=== PATIENT | female | born 1990 | race Caucasian/White ===

== ENCOUNTER 2016-10-31 13:38 | Emergency (ER) | payer OTHER ==
[~2016-10-31] VITALS: Ht 162.6 cm; Wt 111.6 kg
--- NOTE | 2016-10-31 13:40 | NUR ---
PT AMBULATORY TO ER BED 09. C/O DIFFUSE ABDOMINAL PAIN FOR 2 MONTHS NOW. GOWNED AND PLACED ON MONITOR. STABLE VITALS AWAITING MD ZIMMER.
--- NOTE | 2016-10-31 14:25 | NUR ---
DR CRISOSTOMO AT BEDSIDE FOR EVAL.
[2016-10-31 14:39] LABS: BASOPHILS % (AUTO) 0.4 % (0.0-2.0); EOSINOPHILS # (AUTO) 0.8 /CMM (0.0-0.7); EOSINOPHILS % (AUTO) 7.1 % (0.0-6.0); HEMATOCRIT 36 % (33-45); HEMOGLOBIN 10.6 g/dL (11.5-14.8); LYMPHOCYTES # (AUTO) 2.9 /CMM (0.8-4.8); LYMPHOCYTES % (AUTO) 25.6 % (20.0-44.0); MEAN CORPUSCULAR HEMOGLOBIN 19 PG (26.0-33.0); MEAN CORPUSCULAR HGB CONC 30 g/dl (31.0-36.0); MEAN CORPUSCULAR VOLUME 63 fL (82-100); MONOCYTES # (AUTO) 0.9 /CMM (0.1-1.30); MONOCYTES % (AUTO) 8.2 % (2.0-12.0); NEUTROPHILS # (AUTO) 6.6 /CMM (1.8-8.9); NEUTROPHILS % (AUTO) 58.7 % (43.0-81.0); PLATELET COUNT (AUTO) 344 /CMM (150-450); RDW COEFFICIENT OF VARIATION 19.3 (11.5-15.0); RED BLOOD CELL COUNT(AUTO) 5.69 MIL/uL (4.0-5.2); WHITE BLOOD COUNT (AUTO) 11.2 K/uL (4.3-11.0)
[2016-10-31 14:46] LABS: CALCIUM, SERUM 8.8 mg/dL (8.5-10.1); CREATININE 0.7 mg/dL (0.6-1.3); POTASSIUM 3.7 mmol/L (3.5-5.1)
[2016-10-31 14:51] LABS: ALBUMIN 3.8 g/dL (3.4-5.0); BILIRUBIN,DIRECT 0.1 mg/dL (0.0-0.2); BILIRUBIN,TOTAL 0.2 mg/dL (0.2-1.0); TOTAL PROTEIN, SERUM 8.5 g/dL (6.4-8.2)
--- NOTE | 2016-10-31 15:15 | NUR ---
U/S TECH AT BEDSIDE FOR PELVIC ULTRASOUND.
[2016-10-31 15:19] LABS: APPEARANCE,URINE Turbid (CLEAR); BILIRUBIN,URINE Negative (NEGATIVE); BLOOD, URINE Large Ery/uL (NEGATIVE); COLOR,URINE Dark (YELLOW); KETONES,URINE Negative (NEGATIVE); LEUKOCYTE ESTERASE ,URINE Trace (NEGATIVE); NITRITE, URINE Negative (NEGATIVE); PROTEIN,URINE 30 mg/dl (NEGATIVE); UGLUCOSE Negative (NEGATIVE); UROBILINOGEN,URINE 0.2 EU/dL (0.2)
[2016-10-31 15:31] LABS: RBC,URINE 80-100 /HPF (0-2)
[2016-10-31 15:32] LABS: BACTERIA,URINE Few /HPF (None Seen); SQUAMOUS EPITHELIAL CELL,UR Few /HPF (None Seen)
--- NOTE | 2016-10-31 16:07 | NUR ---
Patient discharged to home in stable condition. Written and verbal after care instructions given. Patient verbalizes understanding of instruction.
[2016-10-31 16:08] VITALS: BP 130/84
== END 2016-10-31 16:10 | disposition home or self-care (01) ==
LOC: ER 13:40
DX: N39.0 Urinary tract infection, site not specified (principal); J45.909 Unspecified asthma, uncomplicated; N83.209 Unspecified ovarian cyst, unspecified side
CPT/HCPCS: 36415; 76856-TC; 80048-TC; 80076-TC; 81000-TC; 83690-TC; 84703-TC; 85025-TC; 87086-TC; A4606; Z7610

== ENCOUNTER 2018-01-28 17:45 | Emergency (ER) | payer OTHER ==
[~2018-01-28] VITALS: Ht 165.1 cm; Wt 117.9 kg
[2018-01-28] MEDS ORDERED: methylPREDNISolone SOD SUCC 125 MG/2ML VIAL ONE (18:28)
[2018-01-28] MEDS ORDERED: methylPREDNISolone SOD SUCC 125 MG/2ML VIAL IV ONE (18:30)
[2018-01-28] MEDS ORDERED: ALBUTEROL FS 2.5 MG/3 ML VIAL.NEB NEB ONE (18:30)
[2018-01-28] MEDS ORDERED: IV NS 0.9% 1,000 ML BAG IV ONE (18:30)
[2018-01-28] MEDS ORDERED: IPRATROPIUM NEB FS 0.5 MG/2.5 ML AMPUL.NEB NEB ONE (18:30)
[2018-01-28] MEDS ORDERED: IPRATROPIUM NEB FS 0.5 MG/2.5 ML AMPUL.NEB ONE (18:45)
[2018-01-28] MEDS ORDERED: ALBUTEROL FS 2.5 MG/3 ML VIAL.NEB ONE (18:45)
[2018-01-28] MEDS ORDERED: methylPREDNISolone SOD SUCC 125 MG/2ML VIAL IM ONE (19:00)
--- NOTE | 2018-01-28 19:00 | NUR ---
RECEIVED REPORT FROM CHI SANCHEZ FOR CONTINUITY OF CARE.
[2018-01-28 20:24] VITALS: BP 125/64
--- NOTE | 2018-01-28 20:26 | NUR ---
Patient discharged to home in stable condition. Written and verbal after care instructions given. Patient verbalizes understanding of instruction. pt. ambulatory with a steady gait
== END 2018-01-28 20:26 | disposition home or self-care (01) ==
LOC: ER 17:53
DX: J45.901 Unspecified asthma with (acute) exacerbation (principal); Z98.890 Other specified postprocedural states
CPT/HCPCS: 94644; 96372; 99285; A4606; J2930; J7030; Z7610

== ENCOUNTER 2018-04-07 17:10 | Emergency (ER) | payer MEDICAID, OTHER ==
[~2018-04-07] VITALS: Ht 165.1 cm; Wt 122.5 kg
--- NOTE | 2018-04-07 17:30 | NUR ---
patient presented to the emergency room c/o worsening sob x 3 days. on room air, breathing evenly and unlabored. ambulatory with steady gait. connected to the monitor and pulse ox. denies any pain at this time, kept comfortable. will continue to monitor accordingly.
[2018-04-07] MEDS ORDERED: IPRATROPIUM NEB FS 0.5 MG/2.5 ML AMPUL.NEB ONE (18:15)
[2018-04-07] MEDS ORDERED: ALBUTEROL FS 2.5 MG/3 ML VIAL.NEB ONE (18:15)
[2018-04-07] MEDS ORDERED: ALBUTEROL FS 2.5 MG/3 ML VIAL.NEB NEB ONE (18:30)
[2018-04-07] MEDS ORDERED: IPRATROPIUM NEB FS 0.5 MG/2.5 ML AMPUL.NEB NEB ONE (18:30)
[2018-04-07] MEDS ORDERED: predniSONE 20 MG TABLET ONE (18:30)
[2018-04-07] MEDS ORDERED: predniSONE 20 MG TABLET PO ONE (18:30)
[2018-04-07 19:24] VITALS: BP 145/98
--- NOTE | 2018-04-07 19:24 | NUR ---
Patient discharged to home in stable condition. Written and verbal after care instructions given. Patient verbalizes understanding of instruction.
== END 2018-04-07 19:24 | disposition home or self-care (01) ==
LOC: ER 17:13
DX: J45.909 Unspecified asthma, uncomplicated (principal); R00.0 Tachycardia, unspecified; Z98.890 Other specified postprocedural states
CPT/HCPCS: 93005; 94644; 99285; A4606; J7512

== ENCOUNTER 2018-04-16 15:12 | Emergency (ER) | payer MEDICAID, OTHER ==
[~2018-04-16] VITALS: Ht 165.1 cm; Wt 121.1 kg
[2018-04-16] MEDS ORDERED: IPRATROPIUM NEB FS 0.5 MG/2.5 ML AMPUL.NEB NEB ONE (15:30)
[2018-04-16] MEDS ORDERED: ALBUTEROL FS 2.5 MG/3 ML VIAL.NEB NEB ONE (15:30)
[2018-04-16] MEDS ORDERED: predniSONE 20 MG TABLET PO ONE (15:30)
--- NOTE | 2018-04-16 15:30 | NUR ---
patient presented to the ER c/o asthma attack and sob. On room air. breathing evenly and unlabored. kept comfortable, will continue to monitor accordingly.
[2018-04-16] MEDS ORDERED: predniSONE 20 MG TABLET ONE (15:37)
[2018-04-16] MEDS ORDERED: IPRATROPIUM NEB FS 0.5 MG/2.5 ML AMPUL.NEB ONE (16:04)
[2018-04-16] MEDS ORDERED: ALBUTEROL FS 2.5 MG/3 ML VIAL.NEB ONE (16:04)
[2018-04-16] MEDS ORDERED: ALBUTEROL FS 2.5 MG/0.5 ML VIAL.NEB ONE (16:44)
[2018-04-16] MEDS ORDERED: ALBUTEROL FS 2.5 MG/0.5 ML VIAL.NEB NEB ONE (17:00)
--- NOTE | 2018-04-16 17:35 | NUR ---
Patient discharged to home in stable condition. Written and verbal after care instructions given. Patient verbalizes understanding of instruction.
[2018-04-16 17:36] VITALS: BP 145/99
== END 2018-04-16 17:37 | disposition home or self-care (01) ==
LOC: ER 15:21
DX: J45.901 Unspecified asthma with (acute) exacerbation (principal); Z98.890 Other specified postprocedural states
CPT/HCPCS: 94640 ×2; 99284; A4606; J7512

== ENCOUNTER 2021-03-15 10:25 | Emergency (ER) | payer OTHER ==
[~2021-03-15] VITALS: Ht 165.1 cm; Wt 113.4 kg
[2021-03-15 10:25] VITALS: BP 135/111
[2021-03-15] MEDS ORDERED: ALBU8.5H8 INH (10:36)
== END 2021-03-15 10:51 | disposition home or self-care (01) ==
LOC: ER 10:38
DX: J45.909 Unspecified asthma, uncomplicated (principal); Z98.890 Other specified postprocedural states; Z79.899 Other long term (current) drug therapy

== ENCOUNTER → 2021-04-02 | Emergency (ER) | payer BC, MEDICAID ==
[~2021-04-02] VITALS: Ht 162.6 cm; Wt 117.9 kg
[~2021-04-02] MED LIST: ALBU8.5H8 INH; DEXAMETHASONE SOD PHOSPHATE 10 MG/ML VIAL ONE; DEXAMETHASONE SOD PHOSPHATE 4 MG/ML VIAL IM ONE
--- NOTE | 2021-04-02 00:29 | NUR ---
PT BIB SELF A/O X 3 C/O DIFFICULTY SWALLOWING STARTED TODAY. DENIES SOB OR ANY OTHER SYMPTOMS.
--- NOTE | 2021-04-02 01:00 | NUR ---
PT STATES FEELS SOME IMPROVEMENT MD AWARE.
--- NOTE | 2021-04-02 01:08 | NUR ---
DISCAHRGE PAPERWORK GIVEN PT LEFT IN STABLE CONDITION.
[2021-04-02 01:09] VITALS: BP 164/96
== END | disposition home or self-care (01) ==
LOC: ER 00:15
DX: R13.10 Dysphagia, unspecified (principal); J45.909 Unspecified asthma, uncomplicated; Z98.891 History of uterine scar from previous surgery; Z79.51 Long term (current) use of inhaled steroids
CPT/HCPCS: 96372; 99283; J1100

== ENCOUNTER 2021-04-19 12:52 | Emergency (ER) | payer MEDICAID ==
[~2021-04-19] VITALS: Ht 162.6 cm; Wt 122.5 kg
[~2021-04-19 12:52] MED LIST changes: -DEXAMETHASONE SOD PHOSPHATE 10 MG/ML VIAL ONE; -DEXAMETHASONE SOD PHOSPHATE 4 MG/ML VIAL IM ONE
[2021-04-19 13:13] VITALS: BP 155/86
--- NOTE | 2021-04-19 13:15 | NUR ---
SEEN AND EXAMINED BY DR JEONG
[2021-04-19] MEDS ORDERED: DEXAMETHASONE SOD PHOSPHATE 10 MG/ML VIAL ONE (13:17)
--- NOTE | 2021-04-19 13:25 | NUR ---
Patient discharged to home in stable condition. Written and verbal after care instructions given. Patient verbalizes understanding of instruction.
[2021-04-19] MEDS ORDERED: DEXAMETHASONE SOD PHOSPHATE 4 MG/ML VIAL IM ONE (13:30)
== END 2021-04-19 13:25 | disposition home or self-care (01) ==
LOC: ER 12:54
DX: R07.0 Pain in throat (principal); J45.909 Unspecified asthma, uncomplicated; Z98.891 History of uterine scar from previous surgery; Z79.51 Long term (current) use of inhaled steroids
CPT/HCPCS: 87070; 87880; 96372; 99283; J1100; 86403-TC

== ENCOUNTER 2021-05-02 11:11 | Emergency (ER) | payer MEDICAID ==
[~2021-05-02] VITALS: Ht 165.1 cm; Wt 136.1 kg
[2021-05-02 11:20] VITALS: BP 148/111
[2021-05-02] MEDS ORDERED: IPRATROPIUM NEB FS 0.5 MG/2.5 ML AMPUL.NEB ONE ×2 (11:32→13:05)
[2021-05-02] MEDS ORDERED: ALBUTEROL FS 2.5 MG/3 ML VIAL.NEB ONE ×2 (11:32→13:05)
[2021-05-02] MEDS: IPRATROPIUM NEB FS 0.5 MG/2.5 ML AMPUL.NEB NEB ONE ×2 (11:39→13:00)
[2021-05-02] MEDS: ALBUTEROL FS 2.5 MG/3 ML VIAL.NEB NEB ONE ×2 (11:39→13:00)
[2021-05-02] MEDS ORDERED: predniSONE 20 MG TABLET ONE (12:07)
[2021-05-02] MEDS: predniSONE 20 MG TABLET PO ONE (12:10)
--- NOTE | 2021-05-02 13:39 | NUR ---
BREATHING TREATMENT STILL ONGOING AT BEDSIDE
[2021-05-02] MEDS ORDERED: PRED50TA PO (13:49)
--- NOTE | 2021-05-02 14:33 | NUR ---
Patient discharged to home in stable condition. Written and verbal after care instructions given. Patient verbalizes understanding of instruction.
== END 2021-05-02 14:35 | disposition home or self-care (01) ==
LOC: ER 11:15
DX: J45.901 Unspecified asthma with (acute) exacerbation (principal); Z79.51 Long term (current) use of inhaled steroids
CPT/HCPCS: 93005; 94644; 94645; 99285; J7512

== ENCOUNTER 2021-10-18 22:07 | Emergency (ER) | payer MEDICAID ==
[~2021-10-18] VITALS: Ht 165.1 cm; Wt 117.0 kg
[~2021-10-18 22:07] MED LIST changes: +PRED50TA PO
--- NOTE | 2021-10-18 22:10 | NUR ---
CALLED FOR TRIAGE NOT IN WAITING ROOM
--- NOTE | 2021-10-18 22:47 | NUR ---
BIBS C/O ASTHMA ATTACK X3 DAYS UNRELIEVED BY INHALER, +WHEEZING BILATERALLY. AMBULATORY, PLACED ON BED, AAOX4, UNLABORED BREATHING SATURATING AT 95%RA
[2021-10-18 22:48] VITALS: BP 151/88
[2021-10-18] MEDS ORDERED: predniSONE 20 MG TABLET ONE (22:54)
--- NOTE | 2021-10-18 22:57 | NUR ---
AT BED SIDE
[2021-10-18] MEDS ORDERED: ALBUTEROL FS 2.5 MG/3 ML VIAL.NEB NEB ONE (23:00)
[2021-10-18] MEDS ORDERED: predniSONE 20 MG TABLET PO ONE (23:00)
[2021-10-18] MEDS ORDERED: IPRATROPIUM NEB FS 0.5 MG/2.5 ML AMPUL.NEB NEB ONE (23:00)
[2021-10-18] MEDS ORDERED: IPRATROPIUM NEB FS 0.5 MG/2.5 ML AMPUL.NEB ONE (23:03)
[2021-10-18] MEDS ORDERED: ALBUTEROL FS 2.5 MG/3 ML VIAL.NEB ONE (23:03)
[2021-10-18] MEDS ORDERED: MOME13HF2 INH (23:12)
[2021-10-18] MEDS ORDERED: PRED20TA PO (23:12)
--- NOTE | 2021-10-18 23:37 | NUR ---
RT AT PT'S BEDSIDE; FINISHING BREATHING TX
--- NOTE | 2021-10-18 23:52 | NUR ---
Patient discharged to home in stable condition. Written and verbal after care instructions given. Patient verbalizes understanding of instruction. pt ambulatory with a steady gait. VSS
== END 2021-10-18 23:53 | disposition home or self-care (01) ==
LOC: ER 22:09
DX: J45.901 Unspecified asthma with (acute) exacerbation (principal); E66.01 Morbid (severe) obesity due to excess calories; Z68.41 Body mass index [BMI] 40.0-44.9, adult; Z98.890 Other specified postprocedural states; Z79.899 Other long term (current) drug therapy
CPT/HCPCS: 99284; 94640 ×2; J7512

== ENCOUNTER 2021-12-15 15:30 | Emergency (ER) | payer BC, MEDICAID ==
[~2021-12-15] VITALS: Ht 165.1 cm; Wt 113.4 kg
[~2021-12-15 15:30] MED LIST changes: +MOME13HF2 INH; +PRED20TA PO
--- NOTE | 2021-12-15 15:38 | NUR ---
BIBS STATING SHES BEEN HAVING ASTHMA ATTACKS THIS MORNING PT WANTS RX FOR INHALER
--- NOTE | 2021-12-15 15:53 | NUR ---
DR ONTIVEROS W/ PT FOR EVAL
[2021-12-15] MEDS ORDERED: predniSONE 20 MG TABLET ONE (16:00)
[2021-12-15] MEDS: predniSONE 20 MG TABLET PO ONE (16:02)
--- NOTE | 2021-12-15 16:02 | NUR ---
PREDNISONE PO GIVEN INDICATED, G[facility] WE[facility]
[2021-12-15] MEDS ORDERED: IPRATROPIUM NEB FS 0.5 MG/2.5 ML AMPUL.NEB ONE (16:09)
[2021-12-15] MEDS ORDERED: ALBUTEROL FS 2.5 MG/3 ML VIAL.NEB ONE (16:09)
[2021-12-15] MEDS: IPRATROPIUM NEB FS 0.5 MG/2.5 ML AMPUL.NEB NEB ONE (16:12)
[2021-12-15] MEDS ORDERED: PRED50TA PO (16:12)
[2021-12-15] MEDS ORDERED: ALBU18HF2 INH (16:12)
[2021-12-15] MEDS: ALBUTEROL FS 2.5 MG/3 ML VIAL.NEB NEB ONE (16:12)
--- NOTE | 2021-12-15 16:16 | NUR ---
Patient discharged to home in stable condition. Written and verbal after care instructions given. Patient verbalizes understanding of instruction.
[2021-12-15 16:17] VITALS: BP 131/84
== END 2021-12-15 16:29 | disposition home or self-care (01) ==
LOC: ER 15:35
DX: J45.901 Unspecified asthma with (acute) exacerbation (principal); J45.909 Unspecified asthma, uncomplicated; Z79.899 Other long term (current) drug therapy; Z79.51 Long term (current) use of inhaled steroids
CPT/HCPCS: 99283; 94799; 94640; J7512

== ENCOUNTER 2022-01-15 22:29 | Emergency (ER) | payer BC ==
[~2022-01-15] VITALS: Ht 165.1 cm; Wt 113.4 kg
[~2022-01-15 22:29] MED LIST changes: +ALBU18HF2 INH
--- NOTE | 2022-01-15 22:38 | NUR ---
BIBWIFE C/O ASTHMA ATTACK STARTED 2 HRS AGO. PT A/OX4. TOLERATING R/A AT 96% WITH SOB. CONNECTED PT TO POX AND MONITOR. SAFETY MEASURES IN PLACE.
[2022-01-15 22:41] VITALS: BP 159/95
[2022-01-15] MEDS ORDERED: IPRATROPIUM NEB FS 0.5 MG/2.5 ML AMPUL.NEB ONE (22:48)
[2022-01-15] MEDS ORDERED: ALBUTEROL FS 2.5 MG/0.5 ML VIAL.NEB ONE ×2 (22:48→23:18)
--- NOTE | 2022-01-15 22:51 | NUR ---
RT AT PT'S BEDSIDE FOR BREATHING TX
[2022-01-15] MEDS ORDERED: DEXAMETHASONE SOD PHOSPHATE 10 MG/ML VIAL ONE (22:59)
[2022-01-15] MEDS ORDERED: IPRATROPIUM NEB FS 0.5 MG/2.5 ML AMPUL.NEB NEB ONE (23:00)
[2022-01-15] MEDS ORDERED: DEXAMETHASONE SOD PHOSPHATE 4 MG/ML VIAL IM ONE (23:00)
[2022-01-15] MEDS ORDERED: ALBUTEROL FS 2.5 MG/0.5 ML VIAL.NEB NEB ONE ×2 (23:00→23:30)
--- NOTE | 2022-01-15 23:05 | NUR ---
1ST BREATHING TX DONE. PT STILL HAVING SOB AND BILATERAL WHEEZING. SATTING 100% ON R/A. NOTIFIED DR. ELAINE AND ORDERED ANOTHER BREATHING TX. RT AWARE.
--- NOTE | 2022-01-15 23:20 | NUR ---
RT AT PT'S BEDSIDE FOR BREATHING TX
[2022-01-15] MEDS ORDERED: ALBU8.5H8 INH (23:38)
[2022-01-15] MEDS ORDERED: PRED50TA PO (23:38)
--- NOTE | 2022-01-15 23:48 | NUR ---
Patient discharged to home in stable condition. Written and verbal after care instructions given. Patient verbalizes understanding of instruction. Denies SOB Tolerating R/A at 98%.
== END 2022-01-15 23:50 | disposition home or self-care (01) ==
LOC: ER 22:34
DX: J45.901 Unspecified asthma with (acute) exacerbation (principal); Z98.890 Other specified postprocedural states; Z79.899 Other long term (current) drug therapy
CPT/HCPCS: 99284; 96372; 94640 ×2; J1100

== ENCOUNTER 2022-04-16 15:08 | Emergency (ER) | payer BC ==
[~2022-04-16] VITALS: Ht 165.1 cm; Wt 113.4 kg
[2022-04-16 15:37] VITALS: BP 186/99
[2022-04-16] MEDS ORDERED: PRED20TA PO (15:58)
[2022-04-16] MEDS ORDERED: DIPH25TA62 PO (15:58)
[2022-04-16] MEDS ORDERED: EPIN0.3P3 IM (15:59)
[2022-04-16] MEDS ORDERED: DEXAMETHASONE 1 MG TABLET ONE (16:00)
[2022-04-16] MEDS ORDERED: DEXAMETHASONE 1 MG TABLET PO ONE (16:00)
[2022-04-16] MEDS ORDERED: diphenhydrAMINE HCL 25 MG CAPSULE PO ONE (16:00)
--- NOTE | 2022-04-16 16:00 | NUR ---
urine collected and sent to lab
[2022-04-16] MEDS ORDERED: DEXAMETHASONE 4 MG TABLET ONE (16:01)
[2022-04-16] MEDS ORDERED: diphenhydrAMINE HCL 25 MG CAPSULE ONE (16:01)
== END 2022-04-16 16:14 | disposition home or self-care (01) ==
LOC: ER 15:18
DX: T78.40XA Allergy, unspecified, initial encounter (principal); J45.909 Unspecified asthma, uncomplicated; Z79.899 Other long term (current) drug therapy; X58.XXXA Exposure to other specified factors, initial encounter
CPT/HCPCS: 99283; J8540 ×2; Q0163

== ENCOUNTER 2022-05-10 07:22 | Emergency (ER) | payer BC ==
[~2022-05-10] VITALS: Ht 165.1 cm; Wt 124.7 kg
[~2022-05-10 07:22] MED LIST changes: +DIPH25TA62 PO; +EPIN0.3P3 IM
--- NOTE | 2022-05-10 07:32 | NUR ---
BIB FRIEND STATING SHE FEELS LIKE SHE WAS HAVING ASTHMA ATTACK DUE THE WINDS BLOWING THE PAST COUPLE DAYS. LAST NIGHT WAS WORSE AND FELT LIKE SHE COULDNT BREATH.
[2022-05-10] MEDS ORDERED: IPRATROPIUM NEB FS 0.5 MG/2.5 ML AMPUL.NEB ONE (07:45)
[2022-05-10] MEDS ORDERED: ALBUTEROL FS 2.5 MG/3 ML VIAL.NEB ONE (07:45)
[2022-05-10] MEDS ORDERED: PRED20TA PO (07:46)
[2022-05-10] MEDS ORDERED: ALBU18HF2 INH (07:46)
[2022-05-10] MEDS ORDERED: ALBUTEROL FS 2.5 MG/3 ML VIAL.NEB CONTNEB ONE (08:00)
[2022-05-10] MEDS ORDERED: IPRATROPIUM NEB FS 0.5 MG/2.5 ML AMPUL.NEB NEB ONE (08:00)
[2022-05-10] MEDS ORDERED: predniSONE 20 MG TABLET PO ONE (08:00)
[2022-05-10] MEDS ORDERED: predniSONE 20 MG TABLET ONE (08:20)
[2022-05-10 09:06] VITALS: BP 153/100
--- NOTE | 2022-05-10 09:06 | NUR ---
Patient discharged to home in stable condition. Written and verbal after care instructions given. Patient verbalizes understanding of instruction.
== END 2022-05-10 09:06 | disposition home or self-care (01) ==
LOC: ER 07:26
DX: J45.901 Unspecified asthma with (acute) exacerbation (principal); Z98.890 Other specified postprocedural states; Z79.899 Other long term (current) drug therapy
CPT/HCPCS: 99285; 94644; J7512

== ENCOUNTER 2022-07-13 15:52 | Emergency (ER) | payer BC ==
[~2022-07-13] VITALS: Ht 165.1 cm; Wt 122.5 kg
--- NOTE | 2022-07-13 16:05 | NUR ---
BIB RELATIVE C/O SOB AND CHEST TIGHTNESS SINCE LAST NIGHT. AUSCULTATED WHEEZING ON ALL LUNG PINTO. AMBULATORY, PLACED IN BED, BREATHING UNLABORED SATURATING AT 97%RA.
--- NOTE | 2022-07-13 16:15 | NUR ---
AT BEDSIDE FOR EVAL.
[2022-07-13] MEDS ORDERED: predniSONE 20 MG TABLET PO ONE (16:30)
[2022-07-13] MEDS ORDERED: IPRATROPIUM NEB FS 0.5 MG/2.5 ML AMPUL.NEB NEB ONE (16:30)
[2022-07-13] MEDS ORDERED: ALBUTEROL FS 2.5 MG/3 ML VIAL.NEB NEB ONE (16:30)
[2022-07-13] MEDS ORDERED: predniSONE 20 MG TABLET ONE (16:32)
[2022-07-13] MEDS ORDERED: ALBUTEROL FS 2.5 MG/3 ML VIAL.NEB ONE (16:39)
[2022-07-13] MEDS ORDERED: IPRATROPIUM NEB FS 0.5 MG/2.5 ML AMPUL.NEB ONE (16:39)
[2022-07-13] MEDS ORDERED: ALBU18HF2 INH (17:27)
[2022-07-13] MEDS ORDERED: PRED50TA PO (17:27)
--- NOTE | 2022-07-13 17:40 | NUR ---
Patient discharged to home in stable condition. Written and verbal after care instructions given. Patient verbalizes understanding of instruction.
[2022-07-13 17:43] VITALS: BP 145/85
== END 2022-07-13 17:40 | disposition home or self-care (01) ==
LOC: ER 15:54
DX: J45.901 Unspecified asthma with (acute) exacerbation (principal); Z79.51 Long term (current) use of inhaled steroids; Z79.899 Other long term (current) drug therapy
CPT/HCPCS: 99283; 93005; 94640; J7512

== ENCOUNTER 2022-10-27 23:47 | Emergency (ER) | payer BC ==
[~2022-10-27] VITALS: Ht 165.1 cm; Wt 122.5 kg
[~2022-10-27 23:47] MED LIST changes: +ALBU2.5V38 NEB; +IPRA12.9 INH
[2022-10-28 00:02] VITALS: TEMP 98.1
[2022-10-28] MEDS ORDERED: ALBUTEROL FS 2.5 MG/0.5 ML VIAL.NEB ONE ×2 (00:10→00:34)
[2022-10-28 00:12] VITALS: O2SAT 97
[2022-10-28 00:29] VITALS: O2SAT 100; O2SAT 98
[2022-10-28] MEDS ORDERED: ALBUTEROL FS 2.5 MG/0.5 ML VIAL.NEB NEB ONE ×2 (00:30→01:00)
[2022-10-28 00:33] VITALS: O2SAT 98
[2022-10-28 00:48] VITALS: O2SAT 100; O2SAT 99
[2022-10-28 01:06] VITALS: BP 149/81; O2SAT 99
[2022-10-28] MEDS ORDERED: PRED20TA PO (21:40)
== END 2022-10-28 01:06 | disposition home or self-care (01) ==
LOC: ER 23:56
DX: J45.901 Unspecified asthma with (acute) exacerbation (principal); E66.01 Morbid (severe) obesity due to excess calories; Z68.41 Body mass index [BMI] 40.0-44.9, adult; Z79.51 Long term (current) use of inhaled steroids; Z79.52 Long term (current) use of systemic steroids; Z79.899 Other long term (current) drug therapy

== ENCOUNTER 2022-10-28 19:55 | Emergency (ER) | payer BC ==
[~2022-10-28] VITALS: Ht 165.1 cm; Wt 122.5 kg
[2022-10-28] MEDS ORDERED: ALBUTEROL FS 2.5 MG/3 ML VIAL.NEB NEB ONE (20:30)
[2022-10-28] MEDS ORDERED: predniSONE 20 MG TABLET PO ONE (20:30)
[2022-10-28] MEDS ORDERED: IPRATROPIUM NEB FS 0.5 MG/2.5 ML AMPUL.NEB NEB ONE (20:30)
[2022-10-28] MEDS ORDERED: predniSONE 20 MG TABLET ONE (20:31)
[2022-10-28] MEDS ORDERED: IPRATROPIUM NEB FS 0.5 MG/2.5 ML AMPUL.NEB ONE (20:47)
[2022-10-28] MEDS ORDERED: ALBUTEROL FS 2.5 MG/3 ML VIAL.NEB ONE (20:47)
[2022-10-28 20:50] VITALS: O2SAT 100
[2022-10-28 21:01] VITALS: O2SAT 100
[2022-10-28 21:15] VITALS: O2SAT 100
[2022-10-28] MEDS ORDERED: PRED20TA PO (21:40)
[2022-10-28 21:50] VITALS: BP 137/81; TEMP 98.2; O2SAT 100
== END 2022-10-28 21:50 | disposition home or self-care (01) ==
LOC: ER 20:06
DX: J45.901 Unspecified asthma with (acute) exacerbation (principal); Z98.890 Other specified postprocedural states; Z79.899 Other long term (current) drug therapy
CPT/HCPCS: 99285; 94640 ×2; J7512

== ENCOUNTER 2022-11-12 17:38 | Emergency (ER) | payer BC ==
[~2022-11-12] VITALS: Ht 165.1 cm; Wt 122.5 kg
[2022-11-12 18:25] LABS: APPEARANCE,URINE CLEAR (CLEAR)
[2022-11-12 18:26] LABS: COLOR,URINE ORANGE (YELLOW)
[2022-11-12 18:33] LABS: BACTERIA,URINE RARE /HPF (None Seen); RBC,URINE 0-2 /HPF (0-2); WBC,URINE 0-2 /HPF (0-3)
[2022-11-12] MEDS ORDERED: CLOT15CR27 VG (18:58)
[2022-11-12 19:06] VITALS: BP 141/91; TEMP 98.4; O2SAT 98
== END 2022-11-12 19:07 | disposition home or self-care (01) ==
LOC: ER 17:43
DX: B37.9 Candidiasis, unspecified (principal); J45.909 Unspecified asthma, uncomplicated; Z79.899 Other long term (current) drug therapy; Z88.1 Allergy status to other antibiotic agents
CPT/HCPCS: 81001

== ENCOUNTER 2023-01-20 21:19 | Emergency (ER) | payer BC ==
[~2023-01-20] VITALS: Ht 162.6 cm; Wt 104.3 kg
[~2023-01-20 21:19] MED LIST changes: +CLOT15CR27 VG
[2023-01-20] MEDS ORDERED: ALBUTEROL FS 2.5 MG/3 ML VIAL.NEB ONE (21:50)
[2023-01-20 21:55] VITALS: O2SAT 98
[2023-01-20] MEDS ORDERED: ALBUTEROL FS 2.5 MG/0.5 ML VIAL.NEB NEB ONE (22:00)
[2023-01-20 22:05] VITALS: O2SAT 100
[2023-01-20] MEDS ORDERED: ALBU8.5H8 INH (22:17)
[2023-01-20 22:33] VITALS: BP 146/88; TEMP 98.8; O2SAT 100
== END 2023-01-20 22:33 | disposition home or self-care (01) ==
LOC: ER 21:22
DX: J45.901 Unspecified asthma with (acute) exacerbation (principal); Z88.0 Allergy status to penicillin; Z88.8 Allergy status to other drugs, medicaments and biological substances; Z79.899 Other long term (current) drug therapy
CPT/HCPCS: 94799-TC

== ENCOUNTER 2023-02-07 17:54 | Emergency (ER) | payer BC ==
[~2023-02-07] VITALS: Ht 165.1 cm; Wt 113.4 kg
[2023-02-07] MEDS ORDERED: PRED50TA PO (19:36)
[2023-02-07] MEDS ORDERED: predniSONE 20 MG TABLET ONE (19:42)
[2023-02-07 19:47] VITALS: BP 145/95; TEMP 98.4; O2SAT 96
[2023-02-07] MEDS ORDERED: predniSONE 50 MG TABLET PO ONE (20:00)
== END 2023-02-07 19:47 | disposition home or self-care (01) ==
LOC: ER 17:57
DX: J45.901 Unspecified asthma with (acute) exacerbation (principal); Z98.890 Other specified postprocedural states; Z79.899 Other long term (current) drug therapy
CPT/HCPCS: 99283; J7512

== ENCOUNTER 2023-05-23 10:30 | Emergency (ER) | payer BC ==
[~2023-05-23] VITALS: Ht 165.1 cm; Wt 113.9 kg
[2023-05-23 11:59] LABS: BASOPHILS # (AUTO) 0.1 K/uL (0.0-0.2); BASOPHILS % (AUTO) 1.1 % (0.0-2.0); EOSINOPHILS # (AUTO) 0.9 K/uL (0.0-0.7); EOSINOPHILS % (AUTO) 8.8 % (0.0-6.0); HEMATOCRIT 37 % (33-45); HEMOGLOBIN 11.3 g/dL (11.5-14.8); LYMPHOCYTES # (AUTO) 1.6 K/uL (0.8-4.8); LYMPHOCYTES % (AUTO) 16.8 % (20.0-44.0); MEAN CORPUSCULAR HEMOGLOBIN 23 PG (26.0-33.0); MEAN CORPUSCULAR HGB CONC 31 g/dl (31.0-36.0); MEAN CORPUSCULAR VOLUME 74 fL (82-100); MONOCYTES # (AUTO) 0.6 K/uL (0.1-1.30); MONOCYTES % (AUTO) 6.1 % (2.0-12.0); NEUTROPHILS # (AUTO) 6.6 K/uL (1.8-8.9); NEUTROPHILS % (AUTO) 67.2 % (43.0-81.0); PLATELET COUNT (AUTO) 277 K/uL (150-450); RED BLOOD CELL COUNT(AUTO) 4.95 MIL/uL (4.0-5.2); RED CELL DISTRIBUTION WIDTH 18.9 % (11.5-15.0); WHITE BLOOD COUNT (AUTO) 9.8 K/uL (4.3-11.0)
[2023-05-23 12:02] LABS: CALCIUM, SERUM 8.2 mg/dL (8.5-10.1); CREATININE 0.6 mg/dL (0.6-1.3); POTASSIUM 3.8 mmol/L (3.5-5.1)
[2023-05-23 12:07] LABS: ALBUMIN 3.7 g/dL (3.4-5.0); BILIRUBIN,DIRECT 0.1 mg/dL (0.0-0.2); BILIRUBIN,TOTAL 0.3 mg/dL (0.2-1.0)
[2023-05-23 13:00] VITALS: TEMP 97.8
[2023-05-23 13:13] LABS: APPEARANCE,URINE Slightly Cloudy (CLEAR); BILIRUBIN,URINE Negative (NEGATIVE); BLOOD, URINE Moderate Ery/uL (NEGATIVE); COLOR,URINE LIGHT YELLOW (YELLOW); KETONES,URINE Negative (NEGATIVE); LEUKOCYTE ESTERASE ,URINE Negative (NEGATIVE); NITRITE, URINE Negative (NEGATIVE); PH,URINE 6.5 (5.0-8.0); PROTEIN,URINE Negative (NEGATIVE); UGLUCOSE Negative (NEGATIVE); UROBILINOGEN,URINE 0.2 EU/dL (0.2)
[2023-05-23 13:16] LABS: PREGNANCY TEST URINE QUAL NEGATIVE (NEGATIVE)
[2023-05-23 13:26] LABS: ADD URINE CULTURE YES; BACTERIA,URINE Few /HPF (None Seen); SQUAMOUS EPITHELIAL CELL,UR Moderate /HPF (None Seen)
[2023-05-23] MEDS ORDERED: IBUP-1955 PO (13:48)
[2023-05-23 14:00] VITALS: BP 120/72; O2SAT 99
== END 2023-05-23 14:01 | disposition home or self-care (01) ==
LOC: ER 10:50
DX: R10.2 Pelvic and perineal pain (principal); R14.0 Abdominal distension (gaseous); J45.909 Unspecified asthma, uncomplicated
CPT/HCPCS: 36415; 76856-TC; 80048-TC; 80076-TC; 81001; 83690-TC; 84703-TC; 85025-TC; 87086-TC

== ENCOUNTER 2023-07-13 08:29 | Emergency (ER) | payer BC ==
[~2023-07-13] VITALS: Ht 165.1 cm; Wt 113.4 kg
[~2023-07-13 08:29] MED LIST changes: +IBUP-1955 PO
[2023-07-13 08:44] VITALS: BP 160/109; TEMP 98.7
[2023-07-13 08:57] VITALS: O2SAT 96
== END 2023-07-13 08:57 | disposition home or self-care (01) ==
LOC: ER 08:37
DX: J45.909 Unspecified asthma, uncomplicated (principal); Z88.8 Allergy status to other drugs, medicaments and biological substances

== ENCOUNTER 2023-08-29 19:46 | Emergency (ER) | payer BC ==
[~2023-08-29] VITALS: Ht 165.1 cm; Wt 113.4 kg
[2023-08-29 20:52] VITALS: BP 158/102; TEMP 98.9
[2023-08-29] MEDS ORDERED: ALBU18HF2 INH (21:10)
[2023-08-29 21:22] VITALS: O2SAT 98
== END 2023-08-29 21:22 | disposition home or self-care (01) ==
LOC: ER 19:46
DX: J45.909 Unspecified asthma, uncomplicated (principal); I10 Essential (primary) hypertension; Z76.0 Encounter for issue of repeat prescription; Z88.8 Allergy status to other drugs, medicaments and biological substances

== ENCOUNTER 2023-09-25 11:32 | Emergency (ER) | payer BC ==
[~2023-09-25] VITALS: Ht 165.1 cm; Wt 113.4 kg
[2023-09-25] MEDS ORDERED: ALBUTEROL FS 2.5 MG/3 ML VIAL.NEB ONE (13:22)
[2023-09-25] MEDS ORDERED: IPRATROPIUM NEB FS 0.5 MG/2.5 ML AMPUL.NEB ONE (13:22)
[2023-09-25] MEDS ORDERED: predniSONE 20 MG TABLET ONE (13:28)
[2023-09-25] MEDS: ALBUTEROL FS 2.5 MG/3 ML VIAL.NEB CONTNEB ONE (13:30)
[2023-09-25 13:31] VITALS: O2SAT 99
[2023-09-25] MEDS: IPRATROPIUM NEB FS 0.5 MG/2.5 ML AMPUL.NEB NEB ONE (13:31)
[2023-09-25] MEDS: predniSONE 20 MG TABLET PO ONE (13:34)
[2023-09-25 13:50] VITALS: BP 143/85; TEMP 98
[2023-09-25] MEDS ORDERED: PRED50TA PO (13:58)
[2023-09-25 13:59] VITALS: O2SAT 99
== END 2023-09-25 14:05 | disposition home or self-care (01) ==
LOC: ER 11:42
DX: J45.901 Unspecified asthma with (acute) exacerbation (principal); I10 Essential (primary) hypertension; Z79.1 Long term (current) use of non-steroidal anti-inflammatories (NSAID); Z79.52 Long term (current) use of systemic steroids; Z79.899 Other long term (current) drug therapy; Z98.890 Other specified postprocedural states; Z88.1 Allergy status to other antibiotic agents
CPT/HCPCS: 99283; 94640; J7512

== ENCOUNTER 2023-10-22 02:13 | Emergency (ER) | payer BC ==
[~2023-10-22] VITALS: Ht 172.7 cm; Wt 104.3 kg
[2023-10-22] MEDS: ALBUTEROL FS 2.5 MG/3 ML VIAL.NEB NEB ONE (04:08)
[2023-10-22 04:10] VITALS: O2SAT 97
[2023-10-22] MEDS ORDERED: ALBUTEROL FS 2.5 MG/3 ML VIAL.NEB ONE (04:10)
[2023-10-22 04:25] VITALS: O2SAT 98
[2023-10-22] MEDS: methylPREDNISolone SOD SUCC 125 MG/2ML VIAL IV ONE (04:43)
[2023-10-22] MEDS: CLONIDINE HCL 0.1 MG TABLET PO ONE (04:43)
[2023-10-22 05:07] VITALS: BP 171/94; TEMP 98.5; O2SAT 94
== END 2023-10-22 05:07 | disposition left against medical advice (07) ==
LOC: ER 02:13
DX: J45.909 Unspecified asthma, uncomplicated (principal); I10 Essential (primary) hypertension; Z79.1 Long term (current) use of non-steroidal anti-inflammatories (NSAID); Z79.52 Long term (current) use of systemic steroids; Z98.890 Other specified postprocedural states; Z79.899 Other long term (current) drug therapy; Z88.1 Allergy status to other antibiotic agents